=== PATIENT | male | born 1950 | race Caucasian/White ===

== ENCOUNTER 2024-08-18 08:20 | Outpatient (REF) | payer MEDICARE, OTHER, SELFPAY ==
[2024-08-18 08:51] LABS: MANUAL DIFF FLAG NO
[2024-08-18 09:06] LABS: Basophils Percent Auto 0.5 % (0-2); Eosinophils Absolute Auto 0.1 X10*3/uL (0.0-0.4); Eosinophils Percent Auto 2.5 % (0-4); Hemoglobin 15.2 g/dl (14.0-18.0); Imm Gran Abs Auto 0.01 X10*3/uL (0.00-0.03); Imm Gran Pct Auto 0.2 % (0.0-0.4); Lymphocytes Absolute Auto 0.9 X10*3/uL (1.2-4.9); Lymphocytes Percent Auto 21.2 % (20-40); Mean Corpuscular Hemoglobin 30.3 pg (27.0-33.0); Mean Corpuscular Volume 91.6 fL (80.0-98.0); Mean Platelet Volume 11.5 fL (9.4-12.4); Monocytes Absolute Auto 0.4 X10*3/uL (0.1-1.2); Monocytes Percent Auto 9.7 % (2-11); Neutrophils Absolute Auto 2.9 x10*3/uL (2.0-8.3); Neutrophils Percent Auto 65.9 % (45-73); Platelet Count 141 X10*3/uL (160-400); Red Blood Count 5.02 X10*6/uL (4.60-5.80); Red Cell Distribution Width 13.4 % (11.0-16.0); White Blood Count 4.4 X10*3/uL (4.8-10.8)
[2024-08-18 09:10] LABS: Estimated Average Glucose 105 mg/dL; Hemoglobin A1c % 5.3 % (<6.0)
[2024-08-18 09:58] LABS: Alanine Aminotransferase 18 U/L (0-40); Albumin Level 4.1 g/dL (3.5-5.0); Alkaline Phosphatase 52 U/L (39-117); Anion Gap 11 (12-20); Aspartate Amino Transferase 24 U/L (5-37); Bilirubin Total 1.3 mg/dL (0.0-1.0); Blood Urea Nitrogen 16 mg/dL (9-16); Carbon Dioxide 25 mmol/L (22-29); Chloride 111 mmol/L (96-108); Cholesterol 137 mg/dL (<200); Estimated Glomerular Filt Rate > 60; Glucose Fasting 93 mg/dL (60-99); HDL Cholesterol 49 mg/dL (>40); LDL Cholesterol Calculated 65 mg/dL (<100); Sodium 143 mmol/L (135-145); Total Protein 6.6 g/dL (6.5-8.0); Triglycerides 119 mg/dL (<150)
[2024-08-18 10:13] LABS: Prostate Specific Antigen 4.87 ng/mL (<0.05-4.0)
== END 2024-08-18 08:21 | disposition home or self-care (01) ==
LOC: HO.LAB 08:20
PROVIDERS: Visit Provider Internal Medicine
DX: E78.5 Hyperlipidemia, unspecified (principal); R53.83 Other fatigue; Z12.5 Encounter for screening for malignant neoplasm of prostate; Z13.1 Encounter for screening for diabetes mellitus
CPT/HCPCS: 36415; 80053; 80061; 83036; 84153; 85025

== ENCOUNTER 2024-11-25 09:44 | Outpatient (AMB) | payer MEDICARE, OTHER, SELFPAY ==
--- NOTE | 2024-11-25 10:04 | A.OFFPC_ITS ---
Vital Signs 11/25/24 10:10 Height 5 ft 4.57 in Weight 132 lb BMI 22.3 BP 150/68 H Blood Pressure Location Rt brachial Position Sitting Respiration 16 Pulse 70 Pulse Source Pulse Oximeter Temp 97.9 F Temp Source Temporal Artery Scan Pulse Oximetry (%) 99 Oxygen Delivery Method Room Air Intake Visit Reasons: Establish Care Larry Car Operator Required: No Accompanied by: Self / Same As Patient Allergies bee pollen (Bee Stings) Allergy (Severe, Unverified 11/25/24 10:50) SWELLING, SOB bees Allergy (Unknown, Uncoded 11/25/24 10:50) anaphylaxis Medication List - Last Reconciled 11/25/24 by Paulette Pan PA-C atenolol 50 mg PO DAILY atorvastatin 10 mg PO DAILY cyanocobalamin (vitamin B-12) mcg IM Q4W doxazosin 2 mg PO DAILY lisinopril 10 mg PO DAILY 30 days metformin 500 mg PO DAILY Tobacco use date assessed: 11/25/24 Fall risk assessment: No Falls in past year Last assessed Fall Risk: 11/25/24 Dental Screening Dental Screen Date: 11/25/24 Did you have a dental visit in the last 12 months?: No Did you have a dental problem in the last 6 months where you did not have access to dental care?: No HPI Establish Care HPI Details The patient is a 74-year-old male presenting for a new patient appointment as he was a patient of Dr. Wang who retired and management of chronic conditions. The patient has a history of hypertension, which has been consistently high throughout his life. He is currently on atenolol and lisinopril, with a recent increase in lisinopril dosage to 10 mg due to elevated readings. Blood pressure monitoring at home shows variability, and he plans to bring his cuff to the clinic for calibration. The patient has been diagnosed with diabetes mellitus, managed with metformin 500 mg twice daily. His recent A1c was 5.3, indicating excellent control, leading to a reduction in metformin dosage to once daily. He has a history of hyperlipidemia, managed with atorvastatin 10 mg, and recent labs show well-controlled cholesterol levels. The patient has a history of ulcerative colitis, with the last significant flare in 2018 requiring hospitalization and transfusions. He has not experienced any recent symptoms and has not seen a chainstitch tunnel elastic operator since then. He experienced a myocardial infarction in 2008, treated with stent placement in the right coronary artery. He has not had any cardiac follow-up since then but is being referred to cardiology for evaluation. Recent lab work indicated a low white blood cell count and low platelet count, which will be monitored. His PSA level is elevated, prompting a referral to urology for further evaluation. The patient denies any abdominal pain, jaundice, or changes in stool, despite a slightly elevated bilirubin level. Social History - Family Status: Lives with daughter and granddaughter. - Substance Use: Former smoker, quit ove r 20 years ago. [facility] Medical History (Updated 11/25/24 @ 11:01 by Paulette Pan PA-C) Total bilirubin, elevated Hyperlipidemia LDL goal <70 Type 2 diabetes mellitus with hemoglobin A1c goal of less than 7.0% History of smoking History of myocardial infarction (~09/05/08) History of blood transfusion History of GI bleed Ulcerative colitis Uvular swelling Hypertension Heart murmur Low platelet count Leukopenia High prostate specific antigen (PSA) Surgical History History of heart artery stent (~09/05/08) History of cholecystectomy History of endoscopy History of colonoscopy H/O inguinal hernia repair Family History Father Suicide Mother BP (high blood pressure) Cervical cancer Social History Housing: House Alcohol intake: current Alcohol intake frequency: does not drink Patient Tobacco Use Status: Former Tobacco user service: Yes Current occupational status: retired Cognitive needs: No Hearing needs: Yes (b/l hearing aids) Vision needs: Yes (rx glasses) Questionnaire PHQ-9 Over the last 2 weeks, how often have you been bothered by any of the following problems? 1. Little interest or pleasure in doing things: not at all 2. Feeling down, depressed, or hopeless: not at all 3. Trouble falling or staying asleep, or sleeping too much: not at all 4. Feeling tired or having little energy: not at all 5. Poor appetite or overeating: not at all 6. Feeling bad about yourself - or that you are a failure or have let yourself or your family down: not at all 7. Trouble concentrating on things, such as reading the newspaper or watching television: not at all 8. Moving or speaking so slowly that other people could have noticed. Or the opposite - being so fidgety or restless that you have been moving around a lot more than usual: not at all 9. Thoughts that you would be better off or of hurting yourself in some way: not at all Total score: 0 Depression Screening Interpretation: Negative Depression Screening Done: Yes 90091 - PHQ-9 Billing: Yes Source: Developed by Drs. Chester Tracey, Maria Antonia Butler, Rudy Brown and colleagues, with an educational eleonora from [employer]. Thrive Questionnaire Date Thrive assessed: 11/25/24 I am a: Patient What is your living situation today?: I have a steady place to live Within the past 12 months, did the food you bought not last and you didn't have the money to get more?: Never true Within the past 12 months, did you worry whether your food would run out before you got money to buy more?: Never true Do you have trouble paying for medicines?: No Do you have trouble getting transportation to medical appointments?: No Do you have trouble paying your heating and electricity bill?: No Do you have trouble taking care of your child, family member or friend?: No Do you have trouble with day-to-day activities such as bathing, preparing meals, shopping, managing finances, etc.?: No Are you currently unemployed and looking for a job?: No Are you interested in more education?: No Please select the resources that you would like help with: None THRIVE Score: 0 AUDIT C Alcohol Use Questionnaire (AUDIT-C) 1. How often do you have a drink containing alcohol?: Never 3. How often do you have six or more drinks on one occasion?: Never Total Score: 0 Score Reviewed/Action Taken: No ISA-7 AMB Questionnaire ISA-7 Date ISA - 7 assessed: 11/25/24 Feeling nervous, anxious, or on edge: 0 = Not at all Not being able to stop or control worryin = Not at all Worrying too much about different things: 0 = Not at all Trouble relaxin = Not at all Being so restless that it is hard to sit still: 0 = Not at all Becoming easily annoyed or irritable: 0 = Not at all Feeling afraid as if something awful might happen: 0 = Not at all Total ISA-7 score (0-4 normal; 5-9 mild; 10-14 moderate; 15-21 severe): 0 Source: Developed by Drs. Chester Tracey, Maria Antonia Butler, Rudy Brown and colleagues, with an educational eleonora from [employer]. ISA-7 Assessment Billing ISA-7 Assessment Tool: ISA-7 Assessment 57471 Review of Systems Const Details: - Gastrointestinal: Denies abdominal pain, jaundice, or changes in stool. - Cardiovascular: Denies chest pain or shortness of breath. - General: Denies unintentional weight loss. All systems reviewed & are unremarkable except as noted in HPI and below Physical exam (Primary Care) Vital Signs: Last Vital Signs Temp 97.9 F 11/25/24 10:10 Pulse 70 11/25/24 10:10 Resp 16 11/25/24 10:10 BP 150/68 H 11/25/24 10:10 Pulse Ox 99 11/25/24 10:10 Oxygen Delivery Method Room Air 11/25/24 10:10 Care Plan Goal for BP management: <140/90 patient will monitor his blood pressure over the next month and he will continue atenolol 50 mg, will increase lisinopril from 5 mg to 10 mg BMI result Body Mass Index 22.3 Normal BMI Tobacco/Smoking Status: Tobacco use Status Tobacco use date assessed 11/25/24 11/25/24 10:06 Patient Tobacco Use Status Former Tobacco user 11/25/24 10:17 PHQ-9: PHQ-9 Score PHQ-9: Total score 0 11/25/24 10:34 Depression Screening Interpretation: Negative Thrive Assessment: Date of Thrive Assessment Date Thrive assessed 11/25/24 11/25/24 10:06 Const Other: Appearance: Alert. Oriented X3. No acute distress. Head: Normal external exam. Normocephalic. Atraumatic. Eyes: Pupils are equal, round, and reactive to light. Extraocular movements intact. Conjunctiva and sclera normal. Eyelids normal. Throat: Pharynx normal. Uvula midline. Moist mucous membranes. Neck: Normal inspection. Neck supple. Full range of motion. Cardiovascular: Normal heart rate and rhythm. Heart sound normal. No murmurs noted. Pulses normal throughout. History of heart attack with stent placement in 2008. Extra heartbeat noted. Respiratory: No respiratory distress. Painless inspiration. Breath sounds normal. No wheezes/rales/rhonchi noted. Chest nontender. No accessory muscle usage noted or decreased air movement noted. Abdomen: Soft and nontender. Bowel sounds normal in all 4 quadrants. No distention noted. No organomegaly noted. Back: Full range of motion noted. Skin: Skin warm and dry. Normal skin color. Normal skin turgor. No rashes/lesions/lacerations noted. Extremities: No lower extremity edema. Extremities exhibit normal range of motion. Extremities nontender. Neuro: Oriented X 3. No motor deficit. No sensory deficit. Reflexes normal. Office Procedures Flu Questionnaire Does the patient have a severe egg allergy?: No Does the patient have severe life threatening allergies?: No Does the patient have a fever or illness today?: No Has the patient ever had Guillain-Mickleton Syndrome?: No Has the patient ever had any past reaction to a flu shot?: No Results AMB Hemoglobin A1c AMB Hemoglobin A1c 5.3 % Last Edit by HIREN Mar on 11/25/24 10:35 Immunizations Fluarix [id number] (PF) 45 mcg (15 mcg x 3)/0.5 mL IM syringe Performing Provider: Paulette Pan PA-C [facility] [place] [facility] Documented (not given) by: HIREN Mar on 11/25/24 10:17 Reason Not Given: Patient Refused Results Reviewed Results Reviewed: Laboratory Last Values Hgb A1c (Clinic) 5.3 % (4.0-6.0) 11/25/24 10:29 - Labs: White blood cell count at 4.4 thousand (low), platelet count at 141,000 (low), A1c at 5.3 (normal), total bilirubin at 1.3 (elevated). - Labs: PSA elevated, specific value not provided. Coding Level of Care Code New Pt Level 4 (34515) Complex EM visit Add On G2211 Diagnoses Hypertension I10 Type 2 diabetes mellitus with hemoglobin A1c goal of less than 7.0% E11.9 Hyperlipidemia LDL goal <70 E78.5 Ulcerative colitis K51.90 History of myocardial infarction I25.2 History of heart artery stent Z95.5 High prostate specific antigen (PSA) R97.20 Leukopenia D72.819 Low platelet count D69.6 Total bilirubin, elevated R17 History of smoking Z87.891 Additional Codes PHQ-9 - 16394 - PHQ-9 Billing: Yes ([id number]) SIA-7 Assessment Billing - ISA-7 Assessment Tool: ISA-7 Assessment 92425 ([id number]) Time Spent (min) 50 Assessment & Plan Assessment & Plan (1) Hypertension: Code(s): I10 - Essential (primary) hypertension Category: Medical Plan: The patient's hypertension is managed with atenolol and lisinopril, with a recent increase in lisinopril dosage to 10 mg due to elevated readings. He is advised to monitor his blood pressure at home and bring his cuff to the clinic for calibration. Follow-up in one month is planned to reassess blood pressure control. (2) Type 2 diabetes mellitus with hemoglobin A1c goal of less than 7.0%: Code(s): E11.9 - Type 2 diabetes mellitus without complications Category: Medical Plan: The patient's diabetes is well-controlled with an A1c of 5.3, leading to a reduction in metformin dosage to once daily. He is advised to continue monitoring his blood sugar levels and follow up in three months. (3) Hyperlipidemia LDL goal <70: Code(s): E78.5 - Hyperlipidemia, unspecified Category: Medical Plan: The patient's hyperlipidemia is managed with atorvastatin 10 mg, and recent labs show well-controlled cholesterol levels. (4) Ulcerative colitis: Code(s): K51.90 - Ulcerative colitis, unspecified, without complications Category: Medical Plan: The patient has a history of ulcerative colitis with the last significant flare in 2018. He has not experienced any recent symptoms and has not seen a chainstitch tunnel elastic operator since then. (5) History of myocardial infarction: Onset Date: ~09/05/08 Comment: 209 s/p stent RCA PROMUS 3.0mm x15 mm Code(s): I25.2 - Old myocardial infarction Category: Medical Plan: The patient experienced a myocardial infarction in 2008, treated with stent placement in the right coronary artery. He is being referred to cardiology for evaluation and follow-up care. (6) History of heart artery stent: Onset Date: ~09/05/08 Comment: 2009 at [facility] RCA PROMUS 3.0mm x15 mm Code(s): Z95.5 - Presence of coronary angioplasty implant and graft Category: Surgical Plan: The patient experienced a myocardial infarction in 2008, treated with stent placement in the right coronary artery. He is being referred to cardiology for evaluation and follow-up care. (7) High prostate specific antigen (PSA): Code(s): R97.20 - Elevated prostate specific antigen [PSA] Category: Medical Plan: The patient's PSA level is elevated, prompting a referral to urology for further evaluation. (8) Leukopenia: Code(s): D72.819 - Decreased white blood cell count, unspecified Category: Medical Plan: The patient has a low white blood cell count and low platelet count, which will be monitored with repeat CBC. (9) Low platelet count: Code(s): D69.6 - Thrombocytopenia, unspecified Category: Medical Plan: The patient has a low white blood cell count and low platelet count, which will be monitored with repeat CBC. (10) Total bilirubin, elevated: Code(s): R17 - Unspecified jaundice Category: Medical Plan: The patient has a slightly elevated bilirubin level, but denies any abdominal pain or jaundice. (11) History of smoking: Code(s): Z87.891 - Personal history of nicotine dependence Category: Social Hx Plan: Patient with history of smoking will refer for lung cancer screening. Plan Plan Patient was informed and verbally consented to the use of an ambient scribe for clinic note documentation during this visit. 1. Hypertension The patient's hypertension is managed with atenolol and lisinopril, with a recent increase in lisinopril dosage to 10 mg due to elevated readings. He is advised to monitor his blood pressure at home and bring his cuff to the clinic for calibration. Follow-up in one month is planned to reassess blood pressure control. 2. Diabetes Mellitus The patient's diabetes is well-controlled with an A1c of 5.3, leading to a reduction in metformin dosage to once daily. He is advised to continue monitoring his blood sugar levels and follow up in three months. 3. Hyperlipidemia The patient's hyperlipidemia is managed with atorvastatin 10 mg, and recent labs show well-controlled cholesterol levels. 4. Ulcerative Colitis The patient has a history of ulcerative colitis with the last significant flare in 2018. He has not experienced any recent symptoms and has not seen a chainstitch tunnel elastic operator since then. 5. History Of Myocardial Infarction With Stent Placement The patient experienced a myocardial infarction in 2008, treated with stent placement in the right coronary artery. He is being referred to cardiology for evaluation and follow-up care. 6. Elevated Prostate-Specific Antigen (Psa) The patient's PSA level is elevated, prompting a referral to urology for further evaluation. 7. Low White Blood Cell Count And Low Platelet Count The patient has a low white blood cell count and low platelet count, which will be monitored with repeat CBC. 8. Elevated Bilirubin The patient has a slightly elevated bilirubin level, but denies any abdominal pain or jaundice. During the visit, I discussed the patient's hypertension management, including the increase in lisinopril dosage and the importance of home blood pressure monitoring. We reviewed his diabetes management, deciding to reduce metformin to once daily due to excellent A1c control. I explained the need for referrals to urology and cardiology due to elevated PSA and history of myocardial infarction, respectively. We also discussed the monitoring of his low white blood cell and platelet counts with repeat CBC. Orders: Orders AMB Hemoglobin A1c Today Z13.9 - Encounter for screening, unspecified TSH reflex Free T4 Today Z00.00 - Encounter for general adult medical ex amination without abnormal findings Vitamin D 25-OH Total Today Z00.00 - Encounter for general adult medical examination without abnormal findings CA echo transthoracic complete Today I10 - Essential (primary) hypertension, R01.1 - Cardiac murmur, unspecified ECG 12 lead EKG Today I10 - Essential (primary) hypertension, I25.2 - Old myocardial infarction, R01.1 - Cardiac murmur, unspecified, Z95.5 - Presence of coronary angioplasty implant and graft Influenza [id number] Immunization Today Z23 - Encounter for immunization Vitamin B12 and Folate Today Z00.00 - Encounter for general adult medical examination without abnormal findings Magnesium Today Z00.00 - Encounter for general adult medical examination without abnormal findings PSA,Total (Free>4and<10) Today Z00.00 - Encounter for general adult medical examination without abnormal findings Complete Blood Count Auto Diff Today Z00.00 - Encounter for general adult medical examination without abnormal findings Referrals Lung Cancer Screening Referral Z87.891 - Personal history of nicotine dependence Urology Referral D69.6 - Thrombocytopenia, unspecified, D72.819 - Decreased white blood cell count, unspecified, R97.20 - Elevated prostate specific antigen [PSA] Gastroenterology Referral Z12.11 - Encounter for screening for malignant neoplasm of colon Cardiology Referral I10 - Essential (primary) hypertension, I25.2 - Old myocardial infarction, R01.1 - Cardiac murmur, unspecified, Z95.5 - Presence of coronary angioplasty implant and graft Medications: New lisinopril 10 mg PO DAILY 30 tabs 0RF 30 days Patient Instructions: - Monitor blood pressure at home and bring cuff to next appointment for calibration. - Take lisinopril 10 mg daily and follow up in one month. - Reduce metformin to once daily and monitor blood sugar levels. - Follow up with urology and cardiology as referred. - Return for repeat CBC to monitor white blood cell and platelet counts.
[2024-11-25 10:10] VITALS: BP 150/68; PULSE 70; RESP 16; TEMP 36.6; O2SAT 99; BMI 22.3
--- OUTSIDE RECORDS SUMMARY | 2024-11-25 10:47 | XMS_ITS | Patient Health Record ---
Author Organization [facility] Address [address] [place] [address] Care Team Providers Care Cardiac Rehabilitation Program Director Name Role Phone Kathleen (RETIRED) Brent EARL Primary Care Provider Unavailable Chester Berg Unavailable [phone] Papo EARL, Nas Unavailable Unavailable Reason For Referral No Information Plan Of Treatment No Information Insurance Providers Payer Name Payer Address Payer Phone Subscriber Number Group Number Insured Name Patient Relationship to Insured Coverage Start Date Coverage End Date MEDICARE OF [place] [address] [place] [id number] [phone] [id number] CHRIS CARR Self - patient is the insured [employer] [address] [place] [phone] [id number] CHRIS CARR Self - patient is the insured
== END 2024-11-25 10:50 | disposition home or self-care (01) ==
LOC: HO.HMCSH 09:44
PROVIDERS: PCP Physician Assistant Medical; Visit Provider Physician Assistant Medical
DX: I10 Essential (primary) hypertension (principal); E11.9 Type 2 diabetes mellitus without complications; E78.5 Hyperlipidemia, unspecified; K51.90 Ulcerative colitis, unspecified, without complications; I25.2 Old myocardial infarction; Z95.5 Presence of coronary angioplasty implant and graft; R97.20 Elevated prostate specific antigen [PSA]; D72.819 Decreased white blood cell count, unspecified; D69.6 Thrombocytopenia, unspecified; R17 Unspecified jaundice; Z87.891 Personal history of nicotine dependence; Z23 Encounter for immunization; Z13.9 Encounter for screening, unspecified

== ENCOUNTER → 2024-11-25 09:44 | Outpatient (BNVA) | payer MEDICARE, OTHER, SELFPAY | PROVIDERS: PCP Internal Medicine; Visit Provider Physician Assistant Medical | DX: I10 Essential (primary) hypertension (principal); E11.9 Type 2 diabetes mellitus without complications; E78.5 Hyperlipidemia, unspecified; I25.2 Old myocardial infarction; K51.90 Ulcerative colitis, unspecified, without complications; R97.20 Elevated prostate specific antigen [PSA]; D72.819 Decreased white blood cell count, unspecified; D69.6 Thrombocytopenia, unspecified; R17 Unspecified jaundice; Z87.891 Personal history of nicotine dependence; Z95.5 Presence of coronary angioplasty implant and graft; Z79.899 Other long term (current) drug therapy | CPT/HCPCS: 83036; 90471; 96127; 99202 ==

== ENCOUNTER 2024-11-30 07:44 | Outpatient (REF) | payer MEDICARE, OTHER, SELFPAY ==
--- OUTSIDE RECORDS SUMMARY | 2024-11-30 07:47 | XMS_ITS | Patient Health Record ---
Author Organization [facility] Address [address] [place] [address] Care Team Providers Care Hazard Waste Handler Name Role Phone ANA ROSA WINTERS PA-C Primary Care Provider Chester Hurd [phone] Reason For Referral No Information Encounters Encounter Location Date Provider Diagnosis [facility] [address] [place] [address] 11/25/2024 Chester Berg Plan Of Treatment No Information Insurance Providers Payer Name Payer Address Payer Phone Subscriber Number Group Number Insured Name Patient Relationship to Insured Coverage Start Date Coverage End Date MEDICARE OF [place] [address] [place] [address] [id number] CHRIS CARR Self - patient is the insured [employer] [address] [place] [id number] CHRIS CARR Self - patient is the insured
[2024-11-30 08:05] LABS: MANUAL DIFF FLAG NO
--- NOTE | 2024-11-30 08:07 | ECG_ITS ---
Test Reason : htn Blood Pressure : */* mmHG Vent. Rate : 90 BPM Atrial Rate : 90 BPM P-R Int : 174 ms QRS Dur : 94 ms QT Int : 350 ms P-R-T Axes : 73 -25 64 degrees QTcB Int : 428 ms Sinus rhythm with occasional Premature ventricular complexes Possible Left atrial enlargement Borderline ECG When compared with ECG of 24-May-2017 10:32, Premature ventricular complexes are now Present Referred By: Paulette Pan Electronically Signed By: CONRAD ROD
[2024-11-30 08:20] LABS: Hematocrit 47.0 % (42.0-52.0); Hemoglobin 16.1 g/dl (14.0-18.0); Imm Gran Abs Auto 0.01 X10*3/uL (0.00-0.03); Imm Gran Pct Auto 0.2 % (0.0-0.4); Lymphocytes Absolute Auto 1.0 X10*3/uL (1.2-4.9); Mean Corpuscular HGB Conc 34.3 g/dl (31.0-36.0); Mean Corpuscular Hemoglobin 31.2 pg (27.0-33.0); Mean Corpuscular Volume 91.1 fL (80.0-98.0); NRBC Abs Auto 0.000 X10*3/uL (0.0-0.012); NRBC Pct Auto 0.0 /100WBC (0.0-0.2); Platelet Count 150 X10*3/uL (160-400); Red Blood Count 5.16 X10*6/uL (4.60-5.80); White Blood Count 4.2 X10*3/uL (4.8-10.8)
[2024-11-30 09:02] LABS: Magnesium 1.8 mg/dL (1.6-2.6)
[2024-11-30 09:15] LABS: PSA,Total (Free>4and<10) 7.26 ng/mL (0.00-4.00)
[2024-11-30 09:26] LABS: Folate 14.7 ng/mL (> or = 4.0); Vitamin B12 746 pg/mL (200-900)
[2024-12-01 12:22] LABS: Free Prostate Spec Ag 1.8 ng/mL; Percent Free Prostate Spec Ag 25 % (calc) (>25)
== END 2024-11-30 07:45 | disposition home or self-care (01) ==
LOC: HO.LAB 07:44
PROVIDERS: PCP Physician Assistant Medical; Visit Provider Physician Assistant Medical
DX: Z00.00 Encounter for general adult medical examination without abnormal findings (principal); Z12.5 Encounter for screening for malignant neoplasm of prostate; I25.2 Old myocardial infarction; I10 Essential (primary) hypertension; R01.1 Cardiac murmur, unspecified; Z95.5 Presence of coronary angioplasty implant and graft
CPT/HCPCS: 36415; 82306; 82607; 82746; 83735; 84153; 84154; 84443; 85025; 93005

== ENCOUNTER → 2024-11-30 08:07 | Outpatient (BNV) | payer MEDICARE, OTHER, SELFPAY | PROVIDERS: PCP Physician Assistant Medical; Visit Provider Internal Medicine | DX: I49.3 Ventricular premature depolarization (principal) | CPT/HCPCS: 93010 ==

== ENCOUNTER 2024-12-23 10:23 | Outpatient (AMB) | payer MEDICARE, OTHER, SELFPAY ==
--- NOTE | 2024-12-23 10:26 | MHC.PC.OV ---
Vital Signs 12/23/24 10:27 Height 5 ft 4.37 in Weight 134 lb 2 oz BMI 22.8 BP 179/79 H Blood Pressure Location Lt brachial Position Sitting Pulse 71 Pulse Source Pulse Oximeter Temp 97.8 F Temp Source Temporal Artery Scan Pulse Oximetry (%) 99 Oxygen Delivery Method Room Air Intake Visit Reasons: Est Pt 1 month F/U Bld Pressure Recheck Coater Slate Required: No Accompanied by: Self / Same As Patient Allergies bee pollen (Bee Stings) Allergy (Severe, Verified 12/23/24 10:57) SWELLING, SOB bees Allergy (Unknown, Uncoded 12/23/24 10:57) anaphylaxis Medication List - Last Reconciled 12/23/24 by Paulette Pan PA-C atenolol 50 mg PO DAILY atorvastatin 10 mg PO DAILY cyanocobalamin (vitamin B-12) mcg IM Q4W doxazosin 2 mg PO DAILY lisinopril 10 mg PO DAILY 30 days metformin 500 mg PO DAILY Tobacco use date assessed: 11/25/24 Fall risk assessment: No Falls in past year Last assessed Fall Risk: 12/23/24 Dental Screening Dental Screen Date: 12/23/24 Did you have a dental visit in the last 12 months?: No Did you have a dental problem in the last 6 months where you did not have access to dental care?: No HPI Est Pt 1 month F/U Bld Pressure Recheck HPI Details The patient is a 74-year-old male presenting with a blood pressure check. The patient reports that his blood pressure at home typically ranges from the mid-120s to mid-130s mmHg, but it tends to be higher in the doctor's office due to anxiety, suggesting possible white coat syndrome. He did not take his blood pressure on the morning of the visit, but a recent reading was 129/66 mmHg, which is considered normal. The patient has a history of Type 2 Diabetes Mellitus, currently managed with metformin once daily. His hemoglobin A1c was last recorded at 5.3%, indicating good glycemic control. He has lost approximately 45-50 pounds over the past few years, which has contributed to improved diabetes management. The patient reports an elevated prostate-specific antigen (PSA) level, which has increased significantly over the past three months. He has been referred to urology for further evaluation, with an appointment scheduled for the next . Recent laboratory results indicate a low white blood cell count of 4.2 x 10^3/?L and a low platelet count of 150,000/?L. Additionally, his total bilirubin level is elevated, although he denies any abdominal pain. Social History - Exercise: The patient has lost 45-50 pounds over the past few years, indicating improved lifestyle habits. [facility] Medical History (Updated 12/23/24 @ 12:20 by Paulette Pan PA-C) Elevated bilirubin Total bilirubin, elevated Hyperlipidemia LDL goal <70 Type 2 diabetes mellitus with hemoglobin A1c goal of less than 7.0% History of smoking History of myocardial infarction (~09/05/08) History of blood transfusion History of GI bleed Ulcerative colitis Uvular swelling Hypertension Heart murmur Low platelet count Leukopenia High prostate specific antigen (PSA) Surgical History History of heart artery stent (~09/05/08) History of cholecystectomy History of endoscopy History of colonoscopy H/O inguinal hernia repair Family History Father Suicide Mother BP (high blood pressure) Cervical cancer Social History Housing: House Alcohol intake: current Alcohol intake frequency: does not drink Patient Tobacco Use Status: Former Tobacco user service: Yes Current occupational status: retired Cognitive needs: No Hearing needs: Yes (b/l hearing aids) Vision needs: Yes (rx glasses) Questionnaire PHQ-9 Over the last 2 weeks, how often have you been bothered by any of the following problems? 1. Little interest or pleasure in doing things: not at all 2. Feeling down, depressed, or hopeless: not at all 3. Trouble falling or staying asleep, or sleeping too much: not at all 4. Feeling tired or having little energy: not at all 5. Poor appetite or overeating: not at all 6. Feeling bad about yourself - or that you are a failure or have let yourself or your family down: not at all 7. Trouble concentrating on things, such as reading the newspaper or watching television: not at all 8. Moving or speaking so slowly that other people could have noticed. Or the opposite - being so fidgety or restless that you have been moving around a lot more than usual: not at all 9. Thoughts that you would be better off or of hurting yourself in some way: not at all Total score: 0 Depression Screening Interpretation: Negative Depression Screening Done: Yes 37565 - PHQ-9 Billing: Yes Source: Developed by Drs. Chester Tracey, Maria Antonia Butler, Rudy Brown and colleagues, with an educational eleonora from [employer]. Thrive Questionnaire Date Thrive assessed: 12/23/24 I am a: Patient What is your living situation today?: I have a steady place to live Within the past 12 months, did the food you bought not last and you didn't have the money to get more?: Never true Within the past 12 months, did you worry whether your food would run out before you got money to buy more?: Never true Do you have trouble paying for medicines?: No Do you have trouble getting transportation to medical appointments?: No Do you have trouble paying your heating and electricity bill?: No Do you have trouble taking care of your child, family member or friend?: No Do you have trouble with day-to-day activities such as bathing, preparing meals, shopping, managing finances, etc.?: No Are you currently unemployed and looking for a job?: No Are you interested in more education?: No Please select the resources that you would like help with: None THRIVE Score: 0 AUDIT C Alcohol Use Questionnaire (AUDIT-C) 1. How often do you have a drink containing alcohol?: Never 3. How often do you have six or more drinks on one occasion?: Never Total Score: 0 Score Reviewed/Action Taken: No ISA-7 AMB Questionnaire ISA-7 Date ISA - 7 assessed: 12/23/24 Feeling nervous, anxious, or on edge: 0 = Not at all Not being able to stop or control worryin = Not at all Worrying too much about different things: 0 = Not at all Trouble relaxin = Not at all Being so restless that it is hard to sit still: 0 = Not at all Becoming easily annoyed or irritable: 0 = Not at all Feeling afraid as if something awful might happen: 0 = Not at all Total ISA-7 score (0-4 normal; 5-9 mild; 10-14 moderate; 15-21 severe): 0 Source: Developed by Drs. Chester Tracey, Maria Antonia Butler, Rudy Brown and colleagues, with an educational eleonora from [employer]. ISA-7 Assessment Billing ISA-7 Assessment Tool: ISA-7 Assessment 03425 Review of Systems Const Details: - Cardiovascular: Reports anxiety-related elevated blood pressure in the doctor's office. Denies chest pain. - Gastrointestinal: Denies abdominal pain. Physical exam (Primary Care) Vital Signs: Last Vital Signs Temp 97.8 F 12/23/24 10:27 Pulse 71 12/23/24 10:27 BP 179/79 H 12/23/24 10:27 Pulse Ox 99 12/23/24 10:27 Oxygen Delivery Method Room Air 12/23/24 10:27 Care Plan Goal for BP management: <140/90 at Goal BMI result Body Mass Index 22.8 Normal BMI Tobacco/Smoking Status: Tobacco use Status Tobacco use date assessed 11/25/24 12/23/24 10:28 Patient Tobacco Use Status Former Tobacco user 12/23/24 10:28 PHQ-9: PHQ-9 Score PHQ-9: Total score 0 12/23/24 10:59 Depression Screening Interpretation: Negative Thrive Assessment: Date of Thrive Assessment Date Thrive assessed 12/23/24 12/23/24 10:28 Const Other: Appearance: Alert. Oriented X3. No acute distress. Head: Normal external exam. Normocephalic. Atraumatic. Eyes: Pupils are equal, round, and reactive to light. Extraocular movements intact. Conjunctiva and sclera normal. Eyelids normal. Throat: Pharynx normal. Uvula midline. Moist mucous membranes. Neck: Normal inspection. Neck supple. Full range of motion. Cardiovascular: Normal heart rate and rhythm. Heart sound normal. No murmurs noted. Pulses normal throughout. Respiratory: No respiratory distress. Painless inspiration. Breath sounds normal. No wheezes/rales/rhonchi noted. Chest nontender. No accessory muscle usage noted or decreased air movement noted. Back:Full range of motion noted. Skin: Skin warm and dry. Normal skin color. Normal skin turgor. Extremities: No lower extremity edema. Extremities exhibit normal range of motion. Neuro: Oriented X 3. No motor deficit. No sensory deficit. Reflexes normal. Office Procedures Flu Questionnaire Does the patient have a severe egg allergy?: No Does the patient have severe life threatening allergies?: No Does the patient have a fever or illness today?: No Has the patient ever had Guillain-Hollywood Syndrome?: No Has the patient ever had any past reaction to a flu shot?: No Immunizations Fluarix [id number] (PF) 45 mcg (15 mcg x 3)/0.5 mL IM syringe Performing Provider: Paulette Pan PA-C [facility] [place] [facility] Documented (not given) by: Patti Davies CMA on 12/23/24 10:34 Reason Not Given: Received Previously Results Reviewed Results Reviewed: - Labs: White blood cell count 4.2 x 10^3/?L, platelet count 150,000/?L, total bilirubin elevated, PSA 4.87 ng/mL, hemoglobin A1c 5.3%. Coding Level of Care Code Est Pt Level 4 (67380) Complex EM visit Add On G2211 Diagnoses Hypertension I10 Type 2 diabetes mellitus with hemoglobin A1c goal of less than 7.0% E11.9 High prostate specific antigen (PSA) R97.20 Leukopenia D72.819 Low platelet count D69.6 Elevated bilirubin R17 Additional Codes ISA-7 Assessment Billing - ISA-7 Assessment Tool: ISA-7 Assessment 05487 ([id number]) PHQ-9 - 51653 - PHQ-9 Billing: Yes ([id number]) Assessment & Plan Assessment & Plan (1) Hypertension: Code(s): I10 - Essential (primary) hypertension Category: Medical Plan: The patient's blood pressure is well-controlled at home, with readings typically in the mid-120s to mid-130s mmHg, but tends to be elevated in the office due to anxiety, suggesting white coat syndrome. The plan is to monitor blood pressure at home and report back with readings to avoid unnecessary medication adjustments. (2) Type 2 diabetes mellitus with hemoglobin A1c goal of less than 7.0%: Code(s): E11.9 - Type 2 diabetes mellitus without complications Category: Medical Plan: The patient is currently on metformin once daily, with an A1c of 5.3%, indicating good glycemic control. A follow-up is planned for March to reassess the need for continued metformin therapy, considering the patient's significant weight loss and improved lifestyle habits. (3) High prostate specific antigen (PSA): Code(s): R97.20 - Elevated prostate specific antigen [PSA] Category: Medical Plan: The patient has an elevated PSA level of 4.87 ng/mL, which has increased significantly over the past three months. He has been referred to urology for further evaluation, with an appointment scheduled for the . (4) Leukopenia: Code(s): D72.819 - Decreased white blood cell count, unspecified Category: Medical Plan: The patient's white blood cell count is low at 4.2 x 10^3/?L. Further monitoring and evaluation are necessary to determine the cause and significance of this finding. (5) Low platelet count: Code(s): D69.6 - Thrombocytopenia, unspecified Category: Medical Plan: The patient's platelet count is low at 150,000/?L. Further monitoring and evaluation are necessary to determine the cause and significance of this finding. (6) Elevated bilirubin: Code(s): R17 - Unspecified jaundice Category: Medical Plan: The patient has an elevated total bilirubin level, but denies any abdominal pain. Further evaluation may be necessary to assess liver function and determine the cause of the elevation. Plan Plan Patient was informed and verbally consented to the use of an ambient scribe for clinic note documentation during this visit. 1. Essential Hypertension The patient's blood pressure is well-controlled at home, with readings typically in the mid-120s to mid-130s mmHg, but tends to be elevated in the office due to anxiety, suggesting white coat syndrome. The plan is to monitor blood pressure at home and report back with readings to avoid unnecessary medication adjustments. 2. Type 2 Diabetes Mellitus The patient is currently on metformin once daily, with an A1c of 5.3%, indicating good glycemic control. A follow-up is planned for March to reassess the need for continued metformin therapy, considering the patient's significant weight loss and improved lifestyle habits. 3. Elevated Prostate-Specific Antigen (Psa) The patient has an elevated PSA level of 4.87 ng/mL, which has increased significantly over the past three months. He has been referred to urology for further evaluation, with an appointment scheduled for the . 4. Low White Blood Cell Count The patient's white blood cell count is low at 4.2 x 10^3/?L. Further monitoring and evaluation are necessary to determine the cause and significance of this finding. 5. Low Platelet Count The patient's platelet count is low at 150,000/?L. Further monitoring and evaluation are necessary to determine the cause and significance of this finding. 6. Elevated Bilirubin The patient has an elevated total bilirubin level, but denies any abdominal pain. Further evaluation may be necessary to assess liver function and determine the cause of the elevation. During the visit, I discussed with the patient the importance of monitoring his blood pressure at home to avoid unnecessary medication adjustments due to white coat syndrome. We also reviewed his diabetes management, noting his excellent glycemic control and significant weight loss, which may allow for future reduction or discontinuation of metformin. The elevated PSA level was addressed, and the patient was informed about the upcoming urology appointment for further evaluation. Orders: Orders Influenza [id number] Immunization Today Z23 - Encounter for immunization UA CC w/rflx Micro + Cult Today Z00.00 - Encounter for general adult medical examination without abnormal findings Patient Instructions: - Monitor your blood pressure at home and report the readings to the office. - Continue taking metformin as prescribed and maintain your current lifestyle habits. - Attend your urology appointment on the of next month for further evaluation of your PSA level.
[2024-12-23 10:27] VITALS: BP 179/79; PULSE 71; TEMP 36.6; O2SAT 99; BMI 22.8
--- OUTSIDE RECORDS SUMMARY | 2024-12-23 11:51 | XMS_ITS | Patient Health Record ---
Author Organization [facility] Address [address] [place] [address] Care Team Providers Care Solution Mixer Name Role Phone ANA ROSA WINTERS PA-C Primary Care Provider Chester Hurd [phone] Reason For Referral No Information Encounters Encounter Location Date Provider Diagnosis [facility] [address] [place] [address] [address] [place] [address] 11/25/2024 Chester Berg Plan Of Treatment Next Appt Details Provider Name:Jaquan putnam Jr, 04/03/2025 10:40:00 AM, [address] [place] [address], [address], [place], [address], Insurance Providers Payer Name Payer Address Payer Phone Subscriber Number Group Number Insured Name Patient Relationship to Insured Coverage Start Date Coverage End Date MEDICARE OF [place] [address] [place] [address] [id number] CHRIS CARR Self - patient is the insured [employer] [address] [place] [id number] CHRIS CARR Self - patient is the insured
== END 2024-12-23 11:06 | disposition home or self-care (01) ==
LOC: HO.HMCSH 10:23
PROVIDERS: PCP Physician Assistant Medical; Visit Provider Physician Assistant Medical
DX: I10 Essential (primary) hypertension (principal); E11.9 Type 2 diabetes mellitus without complications; R97.20 Elevated prostate specific antigen [PSA]; D72.819 Decreased white blood cell count, unspecified; D69.6 Thrombocytopenia, unspecified; R17 Unspecified jaundice; Z23 Encounter for immunization

== ENCOUNTER → 2024-12-23 10:23 | Outpatient (BNVA) | payer MEDICARE, OTHER, SELFPAY | PROVIDERS: PCP Physician Assistant Medical; Visit Provider Physician Assistant Medical | DX: I10 Essential (primary) hypertension (principal); E11.9 Type 2 diabetes mellitus without complications; R97.20 Elevated prostate specific antigen [PSA]; D72.819 Decreased white blood cell count, unspecified; D69.6 Thrombocytopenia, unspecified; R17 Unspecified jaundice; Z13.31 Encounter for screening for depression; Z13.39 Encounter for screening examination for other mental health and behavioral disorders | CPT/HCPCS: 90471; 96127; 99212 ==

== ENCOUNTER 2024-12-27 09:12 | Outpatient (REF) | payer MEDICARE, OTHER, SELFPAY ==
--- OUTSIDE RECORDS SUMMARY | 2024-12-27 10:21 | XMS_ITS | Patient Health Record ---
Author Organization [facility] Address [address] [place] [address] Care Team Providers Care Rehabilitation Supervisor Name Role Phone ANA ROSA WINTERS PA-C Primary Care Provider Chester Hurd [phone] Reason For Referral No Information Encounters Encounter Location Date Provider Diagnosis [facility] [address] [place] [address] [address] [place] [address] 11/25/2024 Chester Berg Plan Of Treatment Next Appt Details Provider Name:Jaquan putnam Jr, 04/03/2025 10:40:00 AM, [address] [place] [address], [address], [place], [address], Insurance Providers Payer Name Payer Address Payer Phone Subscriber Number Group Number Insured Name Patient Relationship to Insured Coverage Start Date Coverage End Date [place]ARE [place] [address] [place] [phone] [id number] CHRIS CARR Self - patient is the insured [employer] [employer] [address] [place] [id number] [phone] [id number] CHRIS CARR Self - patient is the insured
[2024-12-27 21:15] LABS: Appearance Urine Clear; Glucose Urine UA Negative (Negative); PH 6.0 (5.0-9.0); Specific Gravity - Urine 1.020 (1.005-1.025)
== END 2024-12-27 09:13 | disposition home or self-care (01) ==
LOC: HO.LAB 09:12
PROVIDERS: Visit Provider Physician Assistant Medical
DX: Z00.00 Encounter for general adult medical examination without abnormal findings (principal)
CPT/HCPCS: 81003

== ENCOUNTER → 2025-01-03 07:46 | Outpatient (REF) | payer MEDICARE, OTHER, SELFPAY ==
--- NOTE | 2025-01-03 07:49 | CA_ITS ---
Transthoracic Echocardiogram Patient (Last, First, Middle): Tony Jones, Gender: M Date of : 1950 Age: 74 Procedure Date: 01/03/2025 Procedure Type: Transthoracic Echocardiogram Location: OP Height: 162.56 cm Weight: 60.78 kg BSA: 1.65 m2 Heart Rate: bpm BP: 180 / 90 mmHg Quality Assurance Monitor Final: TO Referring MD: Paulette Pan PA-C Symptoms: R01.1 - Cardiac murmur, unspecified Study Quality: Adequate ECG Rhythm: Sinus Conclusions: - The left ventricular systolic function is mildly decreased. The calculated ejection fraction is 47% by biplane method. - The basal inferior and basal inferolateral segments are hypokinetic. - No obvious valvular pathology seen on this study. Findings Left Ventricle Normal left ventricular cavity size. The left ventricular systolic function is mildly decreased. The calculated ejection fraction is 47% by biplane method. There is evidence of regional wall motion abnormalities. Evidence suggests grade I (mild) diastolic dysfunction. There is mild septal asymmetric hypertrophy. Wall Motion Rest Echo Findings The basal inferior and basal inferolateral segments are hypokinetic. Right Ventricle Normal right ventricular cavity size and systolic function. Atria The left atrium is mildly dilated. The right atrium is normal in size. Aortic Valve There is a normal trileaflet aortic valve. There is no aortic valve stenosis. There is no aortic valve regurgitation. Mitral Valve There is mild mitral annular calcification. There is mild mitral valve regurgitation. There is no mitral valve stenosis. Pulmonic Valve The pulmonic valve is likely normal. Tricuspid Valve There is trace tricuspid valve regurgitation. There is no evidence of pulmonary hypertension. Great Vessels The asc aorta is normal in size. Venous The inferior vena cava is normal in size and collapses greater than 50% with inspiration. Pericardium/Pleural There is no evidence of pericardial effusion. Prior Study Comparison No prior study available for comparison. Recommendations, Care & Conclusions No obvious valvular pathology seen on this study. Measurements 2D Linear Measurements IVSd: 1.20 0.6-0.9/0.6-1.0 cm LVIDd: 4.68 3.9-5.3/4.2-5.9 cm LVIDd Index: 2.84 2.4-3.2/2.2-3.1 cm/m2 LVIDs: 3.58 2.0-3.6 cm LVPWd: 0.91 0.7-1.1 cm LA Diam: 4.00 2.7-3.8/3.0-4.0 cm LAIDs Index: 2.42 1.5-2.3 cm/m2 LV Mass: 218.53 67-162/88-224 g LV Mass Index: 132.44 43-95/49-115 g/m2 LVOT Diam: 2.20 3.0+(-)1.3 cm 2D Systolic Function EF 4C: 46.80 >55% EF 2C: 51.10 >55% EF BiP: 47.30 >55% Mitral Valve MV Pk E: 0.66 MV PK A: 1.17 MV Decel Time: 138.00 E/A: 0.60 E'Lateral: 5.22 E'Medial: 3.92 E/E' Med: 16.90 E/E' Lat: 12.70 PHT: 40.00 MVA PHT: 5.50 Decel Lares: 4.80 Aortic Valve AoV Pk Michele: 1.57 AoV Mn Michele: 1.05 AoV VTI: 0.33 AoV Pk Grad: 10.00 Aov Mn Grad: 5.00 RAJAT Cont.VTI: 2.07 LVOT LVOT Pk Michele: 0.84 LVOT Mn Michele: 0.59 LVOT VTI: 0.18 LVOT Pk Grad: 3.00 LVOT Mn Grad: 2.00 LVOT Diam: 2.20 LVOT Area: 3.80 Diastolic Function MV Pk E: 0.66 MV Pk A: 1.17 E/A: 0.60 E'Medial: 3.92 E/E' Med: 16.90 E' Laterial: 5.22 E/E' Lat: 12.70 Right Ventricle TAPSE (mm): 24.60 TVS' Michele: 12.20 Tricuspid Valve TR Pk Michele: 1.97 TR Pk Grad: 16.00 RA Press: 3.00 RVSP: 19.00 Great Vessels Aorta Sinus of Valsalva: 3.02 2.0-3.[address] Ridge: 2.51 1.7-3.4 cm Ao Asc: 3.20 2.1-3.4 cm Updated in Other Vendor System with Status of Final Preet Finney MD electronically signed on 01/04/2025 9:01:19 AM with status of Final
--- OUTSIDE RECORDS SUMMARY | 2025-01-03 07:49 | XMS_ITS | Patient Health Record ---
Author Organization [facility] Address [address] [place] [address] Care Team Providers Care Submarine Advisory Team Watch Officer Name Role Phone ANA ROSA WINTERS PA-C Primary Care Provider Chester Hurd [phone] Reason For Referral No Information Encounters Encounter Location Date Provider Diagnosis [facility] [address] [place] [address] [address] [place] [address] 11/25/2024 Chester Berg Plan Of Treatment Next Appt Details Provider Name:Jaquan putnam Jr, 04/03/2025 10:40:00 AM, [address] [place] [address], [address], [place], [address], Insurance Providers Payer Name Payer Address Payer Phone Subscriber Number Group Number Insured Name Patient Relationship to Insured Coverage Start Date Coverage End Date [place] [address] [place] [address] [id number] CHRIS CARR Self - patient is the insured [employer] [address] [place] [id number] CHRIS CARR Self - patient is the insured
== END ==
LOC: HO.CARD 07:46
PROVIDERS: PCP Physician Assistant Medical; Visit Provider Physician Assistant Medical
DX: R01.1 Cardiac murmur, unspecified (principal); I10 Essential (primary) hypertension
CPT/HCPCS: 93306

== ENCOUNTER → 2025-01-03 07:49 | Outpatient (BNV) | payer MEDICARE, OTHER, SELFPAY | PROVIDERS: PCP Physician Assistant Medical; Visit Provider Internal Medicine | DX: I42.2 Other hypertrophic cardiomyopathy (principal); I34.0 Nonrheumatic mitral (valve) insufficiency; I51.89 Other ill-defined heart diseases; R01.1 Cardiac murmur, unspecified | CPT/HCPCS: 93306 ==

== ENCOUNTER 2025-01-20 08:45 | Outpatient (AMB) | payer MEDICARE, OTHER, SELFPAY ==
--- OUTSIDE RECORDS SUMMARY | 2025-01-20 08:49 | XMS_ITS | Patient Health Record ---
Author Organization [facility] Address [address] [place] [address] Care Team Providers Care Lacquer Shader Name Role Phone ANA ROSA WINTERS PA-C Primary Care Provider Chester Hurd [phone] Reason For Referral No Information Encounters Encounter Location Date Provider Diagnosis [facility] [address] [place] [address] [address] [place] [address] 11/25/2024 Chester Berg Plan Of Treatment Next Appt Details Provider Name:Jaquan putnam Jr, 04/03/2025 10:40:00 AM, [address] [place] [address], [address], [place], [address], Insurance Providers Payer Name Payer Address Payer Phone Subscriber Number Group Number Insured Name Patient Relationship to Insured Coverage Start Date Coverage End Date [place]ARE OF [place] [address] [place] [address] [id number] CHRIS CARR Self - patient is the insured [place] [employer] [address] [place] [id number] CHRIS CARR Self - patient is the insured
--- NOTE | 2025-01-20 08:59 | MHC.OFFVIS ---
Intake Visit Reasons: elevated PSA Intake Note: New patient presents today for initial visit for elevated PSA 11/30 Total PSA:7.26 Urology Medication:Vitamin B12 Blood Thinner:None Antibiotic Allergies:None Allergies bee pollen (Bee Stings) Allergy (Severe, Verified 01/20/25 08:59) SWELLING, SOB bees Allergy (Unknown, Uncoded 12/23/24 10:57) anaphylaxis HPI Comments Details: Tony is a new patient for elevated PSA so your primary referred you here because of [facility] Medical History Mitral valve regurgitation Left atrial enlargement Decreased cardiac ejection fraction Mild diastolic dysfunction Elevated bilirubin Total bilirubin, elevated Hyperlipidemia LDL goal <70 Type 2 diabetes mellitus with hemoglobin A1c goal of less than 7.0% History of smoking History of myocardial infarction (~09/05/08) History of blood transfusion History of GI bleed Ulcerative colitis Uvular swelling Hypertension Heart murmur Low platelet count Leukopenia High prostate specific antigen (PSA) Surgical History History of heart artery stent (~09/05/08) History of cholecystectomy History of endoscopy History of colonoscopy H/O inguinal hernia repair Family History Father Suicide Mother BP (high blood pressure) Cervical cancer Social History Housing: House Alcohol intake: current Alcohol intake frequency: does not drink Patient Tobacco Use Status: Former Tobacco user service: Yes Current occupational status: retired Cognitive needs: No Hearing needs: Yes (b/l hearing aids) Vision needs: Yes (rx glasses) Results AMB Urinalysis, Automated UA Leukoctes 0 Dean/uL Last Edit by Jyoti Pack on 01/20/25 15:21 UA Nitrite Negative Last Edit by Jyoti Pack on 01/20/25 15:21 UA Urobilinogen 0.2 mg/dL Last Edit by Jyoti Pack on 01/20/25 15:21 UA Protein 15 mg/dL Last Edit by Jyoti Pack on 01/20/25 15:21 UA pH 5.0 Last Edit by Jyoti Pack on 01/20/25 15:21 UA Blood 0 Bism[place]/uL Last Edit by Jyoti Pack on 01/20/25 15:21 UA Specific [place] 1.025 Last Edit by Jyoti Pack on 01/20/25 15:21 UA Ketone Negative Last Edit by Jyoti Pack on 01/20/25 15:21 UA Bilirubin 0 mg/dL Last Edit by Jyoti Pack on 01/20/25 15:21 UA Glucose 0 mg/dL Last Edit by Jyoti Pack on 01/20/25 15:21 Assessment & Plan Assessment & Plan Orders: Orders AMB Urinalysis Automated Today Z13.9 - Encounter for screening, unspecified Coding
== END 2025-01-20 09:52 | disposition home or self-care (01) ==
LOC: HO.HUSH 08:45
PROVIDERS: PCP Physician Assistant Medical; Visit Provider Urology
DX: Z13.9 Encounter for screening, unspecified (principal)

== ENCOUNTER → 2025-01-20 08:45 | Outpatient (BNVA) | payer MEDICARE, OTHER, SELFPAY | PROVIDERS: PCP Physician Assistant Medical; Visit Provider Urology | DX: R97.20 Elevated prostate specific antigen [PSA] (principal); N40.1 Benign prostatic hyperplasia with lower urinary tract symptoms; R35.1 Nocturia; Z87.19 Personal history of other diseases of the digestive system; Z79.899 Other long term (current) drug therapy | CPT/HCPCS: 81003; 99202 ==

== ENCOUNTER → 2025-02-02 09:37 | Outpatient (BNVA) | payer MEDICARE, OTHER, SELFPAY | PROVIDERS: PCP Physician Assistant Medical | DX: I10 Essential (primary) hypertension (principal) | CPT/HCPCS: 99211 ==